=== PATIENT | male | born 1970 | race Caucasian/White ===

== ENCOUNTER 2023-03-19 04:53 | Day surgery (SDC) | payer OTHER ==
[2023-03-13 15:00] VITALS: BMI 24.3
[2023-03-19 10:56] VITALS: TEMP 97.1
[2023-03-19 11:43] VITALS: RESP 16
[2023-03-19 11:47] VITALS: BP 130/78; PULSE 76
== END 2023-03-19 11:45 | disposition home or self-care (01) ==
LOC: JASU-ENDO 04:53
PROVIDERS: ATTEND Internal Medicine Gastroenterology
PROC: 0DBN8ZX Excision of Sigmoid Colon, Via Natural or Artificial Opening Endoscopic, Diagnostic (ICD-10-PCS; 2023-03-19)
PROC: 0DBH8ZX Excision of Cecum, Via Natural or Artificial Opening Endoscopic, Diagnostic (ICD-10-PCS; principal; 2023-03-19 10:00)
DX: Z12.11 Encounter for screening for malignant neoplasm of colon (principal); D12.0 Benign neoplasm of cecum; D12.5 Benign neoplasm of sigmoid colon; K64.8 Other hemorrhoids; K57.30 Diverticulosis of large intestine without perforation or abscess without bleeding; I10 Essential (primary) hypertension; E11.9 Type 2 diabetes mellitus without complications; Z79.84 Long term (current) use of oral hypoglycemic drugs
CPT/HCPCS: 82962; 88305-TC